=== PATIENT | male | born 1970 | race Caucasian/White ===

== ENCOUNTER 2025-03-25 16:34 | Emergency (ER) | payer SELFPAY ==
[2025-03-25 16:35] VITALS: BP 159/109; PULSE 82; RESP 18; TEMP 37; O2SAT 98; BMI 43.0
--- NOTE | 2025-03-25 17:41 | EKG12_ITS ---
Test Reason : EDEMA Blood Pressure : */* mmHG Vent. Rate : 73 BPM Atrial Rate : 73 BPM P-R Int : 154 ms QRS Dur : 98 ms QT Int : 380 ms P-R-T Axes : 22 4 34 degrees QTcB Int : 418 ms Normal sinus rhythm Normal ECG Confirmed by Cipriano Gordon ([id number]), business editor KP THOMAS ([id number]) on 03/26/2025 11:42:27 AM Referred By: Confirmed By: Cipriano Gordon
--- NOTE | 2025-03-25 17:41 | EKG12_ITS ---
Test Reason : EDEMA Blood Pressure : */* mmHG Vent. Rate : 73 BPM Atrial Rate : 73 BPM P-R Int : 154 ms QRS Dur : 98 ms QT Int : 380 ms P-R-T Axes : 22 4 34 degrees QTcB Int : 418 ms Normal sinus rhythm Normal ECG Confirmed by Cipriano Gordon ([id number]), assignment editor KP THOMAS ([id number]) on 03/26/2025 11:42:27 AM Referred By: Confirmed By: Cipriano Gordon
--- NOTE | 2025-03-25 17:48 | EX.ED.DYSGE1 ---
HPI History of Present Illness Chief Complaint: Edema Narrative Narrative: Chief complaint and HPI: Peripheral edema. 54-year-old gentleman with no significant past medical history although has not seen a physician since 2016 presents for evaluation of bilateral lower extremity edema for the past several weeks/months. Patient denies any significant pain associated with the edema. He denies any chest pain, shortness of breath. He is a daily tobacco abuser. No history of daily alcohol use. Review of systems: See HPI Medications: As listed on the chart Allergies: As listed on the chart PFSH: Per chart Vital signs: As listed on the chart. Reviewed. Physical exam: Gen: A&O x3, NAD Head: Normocephalic, atraumatic Eyes: No sclera icterus, conjunctiva clear ENT: Moist mucous membranes Neck: Trachea midline, No JVD CV: RRR, no murmurs, bilateral nonpitting peripheral edema of the lower extremities from the feet to approximately the mid calf Resp: Lungs CTA BL, no w/r/c GI: Abd soft, non-distended, non-tender, no r/r/g Musc: Full ROM, no deformity Skin: Warm, dry Neuro: Alert, oriented, grossly intact, sensation intact Psych: Cooperative, appropriate mood and affect PFS PFSH Medical History no medical history Allergy/AdvReac Type Severity Reaction Status Date / Time No Known Allergies Allergy Verified 03/25/25 16:35 Family History no significant family his Surgical History (Updated 03/25/25 @ 17:26 by Otto Couch) History of foot surgery Social History Smoking Status: Current every day smoker tobacco type: cigarettes EXAM Physical Exam Const Vital Signs: 03/25/25 16:35 03/25/25 17:26 03/25/25 19:14 Temperature 98.6 F Temperature Source Oral Pulse Rate 82 76 Respiratory Rate 18 18 Respiratory Effort Normal Respiratory Pattern Normal Blood Pressure 159/109 H 152/93 H Blood Pressure Mean 125 112 Pulse Ox 98 100 Oxygen Delivery Method Room Air MDM MDM MDM Narrative Medical decision making narrative: 54-year-old gentleman with no significant past medical history although has not seen a physician since 2016 presents for evaluation of bilateral lower extremity edema for the past several weeks/months. Patient denies any significant pain associated with the edema. He denies any chest pain, shortness of breath. Differential diagnosis includes but is not limited to venous insufficiency, CHF, cardiac disease, kidney disease, liver disease. Laboratory workup ordered including chest x-ray. Patient's symptoms are not consistent with DVT. CBC without leukocytosis or anemia. Platelets unremarkable. CMP unremarkable. Troponin unremarkable. BNP unremarkable. At this point in time, no clear etiology for patient's bilateral lower extremity edema. May be secondary to venous insufficiency. Recommended compression stockings. Follow-up with primary care physician. He confirmed understanding of plan. Patient was hypertensive here in the emergency department. Told to follow-up with his primary care physician for possible essential hypertension. He confirmed understanding of the plan. Patient will discharge home. EKG: Interpreted by me/EM physician: EKG shows normal sinus rhythm without any acute ischemic changes heart rate 73 Diagnostic: Interpreted by me/EM physician: Chest x-ray without pneumonia, effusion, cardiomegaly, pneumothorax. Radiology in agreement. Impression: 1. Bilateral peripheral edema 2. HTN, to be established Lab Data Labs: Laboratory Results - last 24 hr 03/25/25 17:30 WBC 6.6 RBC 5.09 Hgb 15.3 Hct 46.0 MCV 90.4 MCH 30.1 MCHC 33.3 RDW Std Deviation 47.6 H RDW Coeff of Amira 14.3 Plt Count 228 MPV 10.2 Immature Gran % (Auto) 0.300 Neut % (Auto) 49.2 Lymph % (Auto) 32.5 Cass % (Auto) 13.2 H Eos % (Auto) 3.9 Baso % (Auto) 0.9 Absolute Neuts (auto) 3.2 Absolute Lymphs (auto) 2.14 Nucleated RBC % 0 Sodium 140 Potassium 3.9 Chloride 102 Carbon Dioxide 25.2 Anion Gap 13 BUN 12 Creatinine 1.04 Estim Creat Clear Calc 104.87 Est GFR (MDRD) Non-Af 85 BUN/Creatinine Ratio 11.3 Glucose 97 Calcium 9.2 Total Bilirubin 0.19 AST 27 ALT 31 Alkaline Phosphatase 100 Troponin T High Sens 8 NT pro BNP II < 36 Total Protein 6.7 Albumin 4.4 Globulin 2.4 Albumin/Globulin Ratio 1.8 Radiography Diagnostic Testing: Clinical Impression(s) from Imaging Studies Chest X-Ray 03/25/25 18:03 IMPRESSION: NO ACUTE FINDINGS. Reading Location: [facility] Discharge Plan Triage Chief Complaint: Edema ED Provider: Yasmani Medina Dx/Rx/DC Orders Primary Care Provider: Care Physician,No Primary Referrals: Care Physician,No Primary [Primary Care Provider] - Print Language: Amharic
--- NOTE | 2025-03-25 18:03 | RAD_ITS ---
PROCEDURE: CHEST PA AND LATERAL 03/25/2025 REASON FOR EXAM: PERIPHERAL EDEMA TECHNIQUE: CHEST PA AND LATERAL COMPARISON: None. FINDINGS: The heart is normal in size. The lungs are clear. No pleural effusion or pneumothorax. No acute osseous abnormalities. RAD/Chest PA and Lateral IMPRESSION: NO ACUTE FINDINGS. Reading Location: [id number]
--- NOTE | 2025-03-25 18:03 | RAD_ITS ---
PROCEDURE: CHEST PA AND LATERAL 03/25/2025 REASON FOR EXAM: PERIPHERAL EDEMA TECHNIQUE: CHEST PA AND LATERAL COMPARISON: None. FINDINGS: The heart is normal in size. The lungs are clear. No pleural effusion or pneumothorax. No acute osseous abnormalities. RAD/Chest PA and Lateral IMPRESSION: NO ACUTE FINDINGS. Reading Location: [id number]
[2025-03-25 18:04] LABS: Hematocrit 46.0 % (40-54); Hemoglobin 15.3 g/dL (13.0-16.5); Immature Granulocytes Count 0.020 X10^3/uL (0.0-0.0); Mean Corp Hgb Conc 33.3 g/dL (32-36); Mean Corpuscular Volume 90.4 fL (80-94); Mean Platelet Vol. 10.2 fl (6.2-12.0); NRBC Flagged by Analyzer 0 % (0-5); Platelet Count 228 K/mm3 (150-450); RBC Distribution Width CV 14.3 % (11.6-14.6); RBC Distribution Width SD 47.6 fl (35.1-43.9); Red Blood Count 5.09 M/mm3 (4.6-6.2); White Blood Count 6.6 K/mm3 (4.4-11.0)
[2025-03-25 18:40] LABS: AST(SGOT) 27 U/L (<=37); Alanine Aminotransfer ALT/SGPT 31 U/L (<=46); Albumin, Serum 4.4 g/dL (3.5-5.0); Alkaline Phosphatase 100 U/L (40-129); Anion Gap 13 (5-15); BUN 12 mg/dL (4-19); BUN/Creat Ratio 11.3 RATIO (10-20); Calcium,Total 9.2 mg/dL (7.6-11.0); Carbon Dioxide 25.2 mmol/L (21.0-32.0); Chloride 102 mmol/L (98-108); Estimated Creatinine Clearance 104.87 ml/min (50-250); Globulin 2.4 g/dL (2.2-4.2); Glucose 97 mg/dL (70-99); Potassium 3.9 mmol/L (3.3-5.1)
[2025-03-25 18:41] LABS: Pro- Brain NATRIURETIC PEPTIDE < 36 pg/mL (<=900)
[2025-03-25 19:05] LABS: Troponin T High Sensitivity 8 ng/L (<=22)
[2025-03-25 19:14] VITALS: BP 152/93; PULSE 76; RESP 18; O2SAT 100
[2025-03-25 19:16] VITALS: BP 152/93; PULSE 76; RESP 18; TEMP 37; O2SAT 100
== END 2025-03-25 19:27 | disposition home or self-care (01) ==
PROVIDERS: Emergency Provider Surgery; Visit Provider Surgery
DX: R60.0 Localized edema (principal); F17.210 Nicotine dependence, cigarettes, uncomplicated; R03.0 Elevated blood-pressure reading, without diagnosis of hypertension
CPT/HCPCS: 71046; 80053; 83880; 84484; 85025; 93005; 99283; A4216